=== PATIENT | female | born 1945 | race Caucasian/White ===

== ENCOUNTER → 2018-02-23 | Outpatient (CLI) | payer MEDICARE, OTHER ==
[2018-02-23 12:33] LABS: INTERNATIONAL RATION (INR) 1.59; PROTHROMBIN TIME 19.7 SEC (11.4-15.4)
== END ==
LOC: OD 11:50
PROVIDERS: ATTEND Family Medicine
DX: I48.91 Unspecified atrial fibrillation (principal); Z79.01 Long term (current) use of anticoagulants
CPT/HCPCS: 36415; 85610

== ENCOUNTER → 2018-03-02 | Outpatient (CLI) | payer MEDICARE, OTHER ==
[2018-03-02 13:04] LABS: INTERNATIONAL RATION (INR) 2.24; PROTHROMBIN TIME 25.9 SEC (11.4-15.4)
== END ==
LOC: OD 11:38
PROVIDERS: ATTEND Family Medicine
DX: I48.91 Unspecified atrial fibrillation (principal)
CPT/HCPCS: 36415; 85610